=== PATIENT | female | born 2000 | race Caucasian/White ===

== ENCOUNTER → 2022-11-01 | Outpatient (REF) | payer MEDICARE | LOC: M PLALAB 16:36 | PROVIDERS: ATTEND Advanced Practice Midwife | DX: Z12.4 Encounter for screening for malignant neoplasm of cervix (principal) ==

== ENCOUNTER → 2023-01-05 | Outpatient (REF) | payer MEDICARE | LOC: M LAB REF 16:18 | PROVIDERS: ATTEND Nurse Practitioner Family | DX: Z00.00 Encounter for general adult medical examination without abnormal findings (principal) ==